=== PATIENT | male | born 2000 | race African-American/Black ===

== ENCOUNTER 2024-04-26 16:22 | Emergency (ER) | payer SELFPAY ==
[~2024-04-26] VITALS: Ht 172.7 cm; Wt 73.0 kg
[2024-04-26] MEDS: DIPHENHYDRAMINE 50MG/ML VIAL IM ONE ×2 (21:00→23:47)
[2024-04-26] MEDS: LORAZEPAM 2MG/ML INJ IM ONE ×2 (21:00→23:47)
[2024-04-26] MEDS: HALOPERIDOL LACTATE 5MG/ML VIAL IM ONE ×2 (21:00→23:47)
[2024-04-27 00:02] LABS: BASOPHILS % 0.9 % (0.0-2.0); EOSINOPHILS % 3.5 % (0.0-5.0); HEMATOCRIT. 38.4 % (42.0-52.0); HEMOGLOBIN. 12.2 g/dL (14.0-18.0); LYMPHOCYTES % 13.3 % (20.0-50.0); MEAN CORPUSCULAR HGB CONC 31.7 g/dL (31.0-37.0); MEAN CORPUSCULAR VOLUME 94.7 fL (80.0-94.0); MONOCYTES % 5.7 % (2.0-8.0); NEUTROPHILS % 76.6 % (40.0-76.0); PLATELET 210 x1000/uL (130-400); RED BLOOD CELL COUNT 4.06 mill/uL (4.7-6.1); RED CELL DISTRIBUTION WIDTH 13.4 % (11.6-14.6); WHITE BLOOD COUNT 10.4 x1000/uL (4.5-11.0)
[2024-04-27 00:11] LABS: *AMPHETAMINES SCREEN URINE NEGATIVE (NEGATIVE); *BARBITURATES SCREEN URINE NEGATIVE (NEGATIVE); *BENZODIAZEPINES SCREEN URINE NEGATIVE (NEGATIVE)
[2024-04-27 00:12] LABS: *COCAINE SCREEN URINE NEGATIVE (NEGATIVE)
[2024-04-27 00:13] LABS: CANNABINOID URINE SCREEN NEGATIVE (NEGATIVE); CHLORIDE 106 mEq/L (98-107); ECSTASY MDMA SCREEN URINE NEGATIVE (NEGATIVE); METHADONE URINE SCREEN NEGATIVE (NEGATIVE); OPIATES URINE SCREEN NEGATIVE (NEGATIVE); PHENCYCLIDINE URINE SCREEN NEGATIVE (NEGATIVE); POTASSIUM 3.9 mEq/L (3.5-5.1); SODIUM 143 mEq/L (136-145)
[2024-04-27 00:14] LABS: CALCIUM 9.2 mg/dL (8.7-10.4); CARBON DIOXIDE 30 mEq/L (21-32)
[2024-04-27 00:19] LABS: CREATININE 1.1 mg/dL (0.6-1.3); GLUCOSE 85 mg/dL (70-105); UREA NITROGEN BLOOD 14 mg/dL (9-23)
[2024-04-27 00:21] LABS: ACETAMINOPHEN < 2 ug/mL (10-30); ALANINE AMINOTRANSFERASE 42 IU/L (10-49); ALBUMIN 4.1 g/dL (3.2-4.8); ASPARTATE AMINOTRANSFERASE 39 IU/L (<34); BILIRUBIN TOTAL 0.4 mg/dL (0.1-1.0)
[2024-04-27 00:22] LABS: PROTEIN TOTAL 6.6 g/dL (6.0-8.3)
[2024-04-27 00:24] LABS: CLARITY URINE TURBID (CLEAR); COLOR URINE YELLOW (YELLOW); GLUCOSE URINE NEGATIVE (NEGATIVE); KETONES URINE NEGATIVE (NEGATIVE); NITRITE URINE NEGATIVE (NEGATIVE); OCCULT BLOOD URINE NEGATIVE (NEGATIVE); PH URINE >=9.0 (4.5-8.0); PROTEIN URINE TRACE (NEGATIVE)
[2024-04-27 00:25] LABS: LEUKOCYTE ESTERASE URINE NEGATIVE (NEGATIVE)
[2024-04-27 00:35] LABS: ETHANOL BLOOD < 10 mg/dL (<10)
[2024-04-27 00:53] LABS: AMORPHOUS SEDIMENT URINE 2+ /lpf; BACTERIA URINE TRACE; RBC URINE NONE SEEN /hpf (0-2); SQUAMOUS EPITHELIAL CELL URINE FEW /lpf (RARE/1+); WBC URINE NONE SEEN /hpf (0-2)
[2024-04-27] MEDS: HALOPERIDOL LACTATE 5MG/ML VIAL IM ONE (15:00)
[2024-04-27 17:15] VITALS: O2SAT 100
[2024-04-27] MEDS: MIDAZOLAM HCL 2 MG/2 ML VIAL IM ONE (17:15)
[2024-04-27 19:49] VITALS: BP 112/65; PULSE 72; RESP 16; TEMP 36.66960; O2SAT 98
== END 2024-04-27 19:50 | disposition home or self-care (01) ==
LOC: ER 16:22
DX: F84.0 Autistic disorder (principal); Z20.822 Contact with and (suspected) exposure to COVID-19
CPT/HCPCS: 80053; 80305; 81003; 80307; 80329; 80320; 85025; 36415; 93005; 96372 ×2; 99285; 87426; J1200; J1630 ×2; J2060; J2250; G0480